=== PATIENT | female | born 1990 | race Caucasian/White ===

== ENCOUNTER 2020-03-13 03:28 | Inpatient (IN) | payer OTHER ==
[~2020-03-13] VITALS: Ht 162.6 cm; Wt 76.0 kg
[2020-03-13] MEDS ORDERED: MISOPROSTOL 200 MCG TABLET ONE (03:38)
[2020-03-13] MEDS ORDERED: LIDOCAINE 1%, 20ML ONE (03:38)
[2020-03-13] MEDS ORDERED: NEWBORN KIT ONE (03:38)
[2020-03-13] MEDS ORDERED: OXYTOCIN 30U/ 0.9% NaCL 500ML 500 ML ONE ×2 (03:38→11:20)
[2020-03-13] MEDS ORDERED: FENTANYL PF 100 MCG/2ML ONE (03:42)
[2020-03-13] MEDS ORDERED: METOCLOPRAMIDE 5 MG/ML, 2ML IVPush PRN (04:00)
[2020-03-13] MEDS ORDERED: LACTATED RINGERS 1,000 ML IVBOLUS PRN ×2 (04:00→04:30)
[2020-03-13] MEDS ORDERED: TERBUTALINE 1 MG/ML, 1ML IVPush PRN (04:00)
[2020-03-13] MEDS ORDERED: TERBUTALINE 1 MG/ML, 1ML SQ PRN (04:00)
[2020-03-13] MEDS ORDERED: CALCIUM CARBONATE 500 MG TAB.CHEW PO PRN (04:00)
[2020-03-13] MEDS ORDERED: OXYTOCIN 30U/ 0.9% NaCL 500ML 500 ML IV ONE (04:00)
[2020-03-13] MEDS ORDERED: D5%-LACTATED RINGERS 1,000 ML IV SCH (04:00)
[2020-03-13] MEDS ORDERED: LACTATED RINGERS 1,000 ML IV SCH ×2 (04:00→04:30)
[2020-03-13] MEDS ORDERED: SODIUM CITRATE/CITRIC ACID 30 ML UDC PO PRN (04:00)
[2020-03-13] MEDS ORDERED: FENTANYL PF 100 MCG/2ML IVPush PRN (04:00)
[2020-03-13] MEDS ORDERED: ONDANSETRON 2MG/ML, 2ML IVPush PRN (04:00)
[2020-03-13 04:01] LABS: BASOPHILS % (AUTO) 1 % (0-1); EOSINOPHILS % (AUTO) 1 % (1-7); LYMPHOCYTES % (AUTO) 20 % (22-44); MEAN CORPUSCULAR HEMOGLOBIN 27.3 pg (27.0-34.8); MEAN CORPUSCULAR HGB CONC 31.9 g/dL (32.4-35.8); MEAN PLATELET VOLUME 10.4 fL (7.4-10.4); MONOCYTES % (AUTO) 8 % (2-9); NEUTROPHILS % (AUTO) 71 % (42-75); PLATELET COUNT 236 x10^3/uL (130-400); RED BLOOD COUNT 4.02 x10^6/uL (3.82-5.3); RED CELL DISTRIBUTION WIDTH 14.7 % (9.6-15.2)
[2020-03-13 04:04] LABS: MD NO
[2020-03-13] MEDS ORDERED: BUPIVACAINE 0.25% ONE (04:09)
[2020-03-13] MEDS ORDERED: FENTANYL/BUPIV./NS/PF 250 ML EPIDCONT ONE (04:09)
[2020-03-13] MEDS ORDERED: EPHEDRINE 50 MG/ML, 1ML IVPush PRN (04:30)
[2020-03-13] MEDS ORDERED: PLEASE ENTER ALLERGIES MC SCH (04:30)
[2020-03-13] MEDS ORDERED: FENTANYL/BUPIV./NS/PF 250 ML EPIDCONT SCH (04:30)
[2020-03-13] MEDS ORDERED: NALOXONE 0.4 MG/ML, 1ML IVPush PRN (04:30)
[2020-03-13 05:12] VITALS: BP 117/73
[2020-03-13] MEDS ORDERED: OXYTOCIN 30U/ 0.9% NaCL 500ML 500 ML IV PRN (09:00)
[2020-03-13] MEDS ORDERED: CARBOPROST TROMETHAMINE 250 MCG/ML, 1ML IM PRN (11:30)
[2020-03-13] MEDS ORDERED: OXYcodone/APAP 5/325MG TABLET PO PRN (11:30)
[2020-03-13] MEDS ORDERED: ACETAMINOPHEN 325 MG TABLET PO PRN ×2 (11:30)
[2020-03-13] MEDS ORDERED: DIPH,PERTUSS(ACELL),TET VAC/PF NC IM-VACC PRN (11:30)
[2020-03-13] MEDS ORDERED: DOCUSATE 100 MG CAPSULE PO PRN (11:30)
[2020-03-13] MEDS: OXYTOCIN 30U/ 0.9% NaCL 500ML 500 ML IV SCH ×2 (11:30→21:30)
[2020-03-13] MEDS ORDERED: SIMETHICONE 80 MG CHEW TAB PO PRN (11:30)
[2020-03-13] MEDS ORDERED: MISOPROSTOL 200 MCG TABLET PR PRN (11:30)
[2020-03-13] MEDS ORDERED: MEASLES,MUMPS&RUBELLA VACC/PF 0.5 ML SQ-VACC PRN (11:30)
[2020-03-13] MEDS ORDERED: RHOGAM FROM BLOOD BANK 1 NOTE EA IM/IV ONE (11:30)
[2020-03-13 13:15] VITALS: BP 119/79
[2020-03-13] MEDS: IBUPROFEN 600 MG TABLET PO PRN ×2 (13:44→20:47)
[2020-03-13 17:30] VITALS: BP 102/66
[2020-03-13] MEDS: OXYcodone/APAP 5/325MG TABLET PO PRN ×3 (18:12→23:16)
[2020-03-13 20:00] VITALS: BP 118/77
[2020-03-13 21:20] LABS: BASOPHILS % (AUTO) 0 % (0-1); EOSINOPHILS % (AUTO) 1 % (1-7); LYMPHOCYTES % (AUTO) 18 % (22-44); MEAN CORPUSCULAR HEMOGLOBIN 27.6 pg (27.0-34.8); MEAN CORPUSCULAR HGB CONC 32.2 g/dL (32.4-35.8); MEAN PLATELET VOLUME 10.1 fL (7.4-10.4); MONOCYTES % (AUTO) 6 % (2-9); NEUTROPHILS % (AUTO) 75 % (42-75); PLATELET COUNT 194 x10^3/uL (130-400); RED BLOOD COUNT 3.48 x10^6/uL (3.82-5.3); RED CELL DISTRIBUTION WIDTH 15.2 % (9.6-15.2)
[2020-03-13 21:22] LABS: MD NO
[2020-03-14 00:50] VITALS: BP 110/68
[2020-03-14 04:51] VITALS: BP 109/66
[2020-03-14] MEDS: IBUPROFEN 600 MG TABLET PO PRN ×2 (05:05→10:24)
[2020-03-14] MEDS: OXYTOCIN 30U/ 0.9% NaCL 500ML 500 ML IV SCH (07:30)
[2020-03-14 07:40] VITALS: BP 116/81
[2020-03-14] MEDS ORDERED: PRENATAL VIT/IRON/FA 1 EACH TABLET PO SCH (09:00)
[2020-03-14] MEDS: OXYcodone/APAP 5/325MG TABLET PO PRN ×2 (10:24→14:46)
[2020-03-14] MEDS ORDERED: OXYcodone/APAP 5/325MG TABLET ONE (14:42)
== END 2020-03-14 15:25 | disposition home or self-care (01) | DRG 807 ==
LOC: LDOP 03:28 → LDIP 03:37 → 2NW 13:05
PROVIDERS: ADMIT Obstetrics & Gynecology; ATTEND Obstetrics & Gynecology
PROC: 10E0XZZ Delivery of Products of Conception, External Approach (ICD-10-PCS; principal; 2020-03-13)
PROC: 0KQM0ZZ Repair Perineum Muscle, Open Approach (ICD-10-PCS; 2020-03-13)
PROC: 3E0R3BZ Introduction of Anesthetic Agent into Spinal Canal, Percutaneous Approach (ICD-10-PCS; 2020-03-13)
PROC: 00HU33Z Insertion of Infusion Device into Spinal Canal, Percutaneous Approach (ICD-10-PCS; 2020-03-13)
PROC: 3E0234Z Introduction of Serum, Toxoid and Vaccine into Muscle, Percutaneous Approach (ICD-10-PCS; 2020-03-13)
PROC: 3E0234Z Introduction of Serum, Toxoid and Vaccine into Muscle, Percutaneous Approach (ICD-10-PCS; 2020-03-13)
DX: O69.81X0 Labor and delivery complicated by cord around neck, without compression, not applicable or unspecified (principal); Z37.0 Single live birth; O70.1 Second degree perineal laceration during delivery; O34.211 Maternal care for low transverse scar from previous cesarean delivery; Z20.828 Contact with and (suspected) exposure to other viral communicable diseases; Z3A.37 37 weeks gestation of pregnancy; Z23 Encounter for immunization
CPT/HCPCS: 36415; 85025; 85461; 86592; 86762; 86850; 86900; 87635; G0378; J2790; J3010; J2590; J7120